=== PATIENT | female | born 1975 | race Caucasian/White ===

== ENCOUNTER 2021-08-30 14:17 | Emergency (ER) | payer OTHER, MEDICAID ==
[~2021-08-30] VITALS: Ht 170.2 cm; Wt 120.7 kg
[2021-08-30] MEDS ORDERED: HYDROCODON-ACE1 EAC7 PO (15:17)
[2021-08-30 15:32] VITALS: BP 123/85
== END 2021-08-30 15:33 | disposition home or self-care (01) ==
LOC: M.ERS 14:17
DX: S93.491A Sprain of other ligament of right ankle, initial encounter (principal); W18.39XA Other fall on same level, initial encounter; Y93.89 Activity, other specified; Y92.89 Other specified places as the place of occurrence of the external cause; Y99.8 Other external cause status